=== PATIENT | female | born 1980 | race Caucasian/White ===

== ENCOUNTER 2019-03-24 05:43 | Inpatient (IN) ==
[2019-03-23 10:11] LABS: Apearance,Urine CLEAR (Clear); Bacteria,Urine Occasional /HPF (Few); Bilirubin,Urine Negative (Negative); Blood, Urine Negative (Negative); Glucose,Urine (UA) Negative (Negative); Ketones,Urine Negative (Negative); Mucus,Urine Occasional /LPF (Occasional); Nitrite,Urine Negative (Negative); Protein,Urine Negative; RBC,Urine <1 /HPF (0-4); Squamous Epithelial Cell,Urine Occasional /HPF (0-10); Urine Color Yellow (Yellow); Urine Specific Gravity 1.013 (1.001-1.035); Urine Urobilinogen < 2.0 EU/DL (0.2-1.0); WBC,Urine <1 /HPF (0-6)
[2019-03-23 10:24] LABS: Basophils % 0.3 % (0.0-0.8); Eosinophils # 0.3 10*3/uL (0.0-0.87); Eosinophils % 3.1 % (0.00-10.9); Hematocrit 40.1 VOL% (35.7-47.0); Immature Granulocytes % 0.4 %; Immature Granulocytes Absolute 0.04 #; Lymphocytes # 2.9 10*3/uL (1.4-4.0); Lymphocytes % 31.3 % (21.3-54.2); Mean Corpuscular HGB Conc 32.4 GM/DL (32-36); Mean Corpuscular Volume 90.3 FL (87-102); Mean Platelet Volume 10.5 FL (9.6-12.0); Monocytes % 6.3 % (1.7-12.7); Neutrophils % 58.6 % (38.7-73.9); Platelet Count 401 T/CUMM (130-400); Red Blood Count 4.44 MC/CUMM (3.8-5.5); Red Cell Distribution Width 13.1 % (9.3-17.3); White Blood Count 9.1 T/CUMM (4-12)
[2019-03-23 10:31] LABS: Albumin 3.9 G/DL (3.4-5.0); Bilirubin,Total 0.4 MG/DL (0.2-1.0); Calcium 9.4 MG/DL (8.5-10.1); Osmolality,Calculated 271.8 MOS/KG (273-304); Risk Ratio 2.63; Total Protein 7.9 G/DL (6.4-8.3)
[2019-03-23 11:18] LABS: HIV Antigen/Antibody Result Nonreactive (Nonreactive)
[2019-03-24] MEDS ORDERED: AMPICILLIN/SULBACTAM 3,000 MG in SODIUM CHLORIDE 0.9% 100 ML IV ONE (06:00)
[2019-03-24] MEDS ORDERED: LACTATED RINGERS 1,000 ML IV SCH ×2 (07:00→11:30)
[2019-03-24] MEDS ORDERED: fentaNYL 100 MCG/2 ML VIAL ONE ×2 (08:33→11:19)
[2019-03-24] MEDS ORDERED: MIDAZOLAM 2 MG/2 ML VIAL ONE (08:33)
[2019-03-24] MEDS ORDERED: EPINEPHrine 1 MG/ML VIAL ONE (08:34)
[2019-03-24] MEDS ORDERED: BUPIVACAINE 0.5% 50 ML VIAL ONE (08:34)
[2019-03-24] MEDS ORDERED: DEXAMETHASONE 4 MG/1 ML VIAL ONE ×2 (08:34→11:19)
[2019-03-24] MEDS ORDERED: SEVOFLURANE 1 UNIT/15 MINUTE INH ONE (11:19)
[2019-03-24] MEDS ORDERED: LIDOCAINE 2% 5 ML VIAL ONE (11:19)
[2019-03-24] MEDS ORDERED: PROPOFOL 200 MG/20 ML VIAL IV ONE (11:19)
[2019-03-24] MEDS ORDERED: ONDANSETRON 4 MG/2 ML VIAL ONE (11:19)
[2019-03-24] MEDS ORDERED: ROCURONIUM 100 MG/10 ML VIAL IV ONE (11:20)
[2019-03-24] MEDS ORDERED: BENZOCAINE/MENTHOL LOZENGE 18/BOX PO PRN (11:20)
[2019-03-24] MEDS ORDERED: DOCUSATE SODIUM 100 MG CAPSULE PO PRN (11:20)
[2019-03-24] MEDS ORDERED: MAGNESIUM HYDROXIDE SUSP 30 ML UDCUP PO PRN (11:20)
[2019-03-24] MEDS ORDERED: ACETAMINOPHEN 325 MG TABLET PO PRN (11:20)
[2019-03-24] MEDS ORDERED: ONDANSETRON 4 MG/2 ML VIAL IV PRN ×2 (11:20)
[2019-03-24] MEDS ORDERED: NEOSTIGMINE 10 MG/10 ML VIAL ONE (11:20)
[2019-03-24] MEDS ORDERED: SUCCINYLCHOLINE 200 MG/10 ML VIAL ONE (11:20)
[2019-03-24] MEDS ORDERED: ACETAMINOPHEN 1,000 MG/100 ML VIAL IV ONE (11:20)
[2019-03-24] MEDS ORDERED: LACTATED RINGERS 1,000 ML IV ONE (11:20)
[2019-03-24] MEDS ORDERED: BISACODYL 10 MG SUPP RECTAL PRN (11:20)
[2019-03-24] MEDS ORDERED: GLYCOPYRROLATE 0.4 MG/2 ML VIAL ONE (11:20)
[2019-03-24] MEDS ORDERED: HYDROmorphone 2 MG/1 ML VIAL ONE (11:21)
[2019-03-24] MEDS: HYDROmorphone 2 MG/1 ML VIAL IV PRN ×4 (11:24→11:41)
[2019-03-24 13:48] LABS: Apearance,Urine CLEAR (Clear); Bilirubin,Urine Negative (Negative); Blood, Urine Negative (Negative); Glucose,Urine (UA) Negative (Negative); Ketones,Urine 5 mg/dL (Negative); Mucus,Urine Occasional /LPF (Occasional); Nitrite,Urine Negative (Negative); Protein,Urine Negative; RBC,Urine 1 /HPF (0-4); Squamous Epithelial Cell,Urine Occasional /HPF (0-10); Urine Color Straw (Yellow); Urine Specific Gravity 1.006 (1.001-1.035); Urine Urobilinogen < 2.0 EU/DL (0.2-1.0); WBC,Urine <1 /HPF (0-6)
[2019-03-24] MEDS ORDERED: GLUCAGON 1 MG VIAL IM PRN (17:23)
[2019-03-24] MEDS ORDERED: DEXTROSE 50% 25 GM/50 ML VIAL IV PRN (17:23)
[2019-03-24] MEDS: ceFAZolin 1,000 MG in SYRINGE 1 EACH IV SCH (17:30)
[2019-03-24] MEDS: INSULIN REGULAR 100 UNIT/ML SUBCUT SCH (19:16)
[2019-03-25] MEDS: INSULIN REGULAR 100 UNIT/ML SUBCUT SCH ×5 (00:06→21:14)
[2019-03-25] MEDS: ceFAZolin 1,000 MG in SYRINGE 1 EACH IV SCH (01:09)
[2019-03-25 05:37] LABS: Basophils % 0.2 % (0.0-0.8); Eosinophils % 0.1 % (0.00-10.9); Immature Granulocytes % 0.4 %; Immature Granulocytes Absolute 0.05 #; Lymphocytes # 2.9 10*3/uL (1.4-4.0); Lymphocytes % 24.6 % (21.3-54.2); Mean Corpuscular HGB Conc 32.4 GM/DL (32-36); Mean Corpuscular Volume 90.9 FL (87-102); Mean Platelet Volume 10.3 FL (9.6-12.0); Monocytes % 8.2 % (1.7-12.7); Neutrophils % 66.5 % (38.7-73.9); Platelet Count 379 T/CUMM (130-400); Red Blood Count 4.07 MC/CUMM (3.8-5.5); Red Cell Distribution Width 13.1 % (9.3-17.3); White Blood Count 11.8 T/CUMM (4-12)
[2019-03-25] MEDS: IBUPROFEN 800 MG TABLET PO PRN ×2 (09:33→18:09)
[2019-03-26] MEDS: INSULIN REGULAR 100 UNIT/ML SUBCUT SCH (07:50)
[2019-03-26 08:17] VITALS: BP 97/59
== END 2019-03-26 08:55 | disposition home or self-care (01) | DRG 743 ==
LOC: N.PREADM 05:43 → N.SDSINP 05:44 → N.OB 12:00
PROVIDERS: ADMIT Obstetrics & Gynecology; ATTEND Obstetrics & Gynecology

== ENCOUNTER 2022-03-19 13:26 | Inpatient (IN) ==
[2022-03-19] MEDS ORDERED: HYDROCORTISONE 100 MG VIAL IV STA ×2 (15:14→16:38)
[2022-03-19] MEDS ORDERED: SODIUM CHLORIDE 0.9% 1,000 ML IV STA ×2 (15:14→19:01)
[2022-03-19] MEDS ORDERED: MORPHINE 2 MG/1 ML SYRINGE IV STA (15:17)
[2022-03-19] MEDS ORDERED: ONDANSETRON 4 MG/2 ML VIAL IV STA (15:17)
[2022-03-19 15:26] LABS: Basophils % 0.1 % (0.0-0.8); Hematocrit 41.3 VOL% (35.7-47.0); Hemoglobin 14.5 GM/DL (12.0-16.0); Immature Granulocytes % 0.2 %; Immature Granulocytes Absolute 0.02 #; Lymphocytes # 2.4 10*3/uL (1.4-4.0); Lymphocytes % 27.4 % (21.3-54.2); Mean Corpuscular HGB Conc 35.1 GM/DL (32-36); Mean Corpuscular Volume 85.3 FL (87-102); Mean Platelet Volume 11.1 FL (9.6-12.0); Monocytes # 0.3 10*3/uL (0.11-0.8); Monocytes % 3.8 % (1.7-12.7); Neutrophils % 68.5 % (38.7-73.9); Platelet Count 406 T/CUMM (130-400); Red Blood Count 4.84 MC/CUMM (3.8-5.5); Red Cell Distribution Width 12.7 % (9.3-17.3); White Blood Count 8.7 T/CUMM (4-12)
[2022-03-19 15:45] LABS: Albumin 4.8 G/DL (3.4-5.0); Bilirubin,Total 0.9 MG/DL (0.20-1.00); Calcium 10.8 MG/DL (8.5-10.1); Osmolality,Calculated 263.8 MOS/KG (273-304); Thyroid Stimulating Hormone 5.45 uIU/ml (0.358-3.74)
[2022-03-19 15:50] LABS: Potassium 6.9 MMOL/L (3.5-5.1)
[2022-03-19] MEDS ORDERED: ALBUTEROL 2.5 MG/3 ML NEB RESP TX STA (16:15)
[2022-03-19] MEDS ORDERED: INSULIN REGULAR 100 UNIT/ML IV STA (16:15)
[2022-03-19 16:43] LABS: Arterial Base Excess iSTAT -9 MMOL/L (-2.5-2.5); Arterial Bicarbonate iSTAT 16.6 MMOL/L (20-26); Arterial O2 Saturation iSTAT 100 % (95-100); Arterial PCO2 iSTAT 33 MM HG (35-48); Arterial PO2 iSTAT 251 MM HG (80-95); Arterial Total CO2 iSTAT 18 MMO/L (23-27)
[2022-03-19] MEDS: INSULIN LISPRO 100 UNIT/ML SUBCUT SCH ×2 (21:15→23:52)
[2022-03-19] MEDS: SODIUM CHLORIDE 0.9% 1,000 ML IV SCH (21:35)
[2022-03-19 23:40] LABS: Osmolality,Calculated 277.9 MOS/KG (273-304); Potassium 4.9 MMOL/L (3.5-5.1)
[2022-03-19] MEDS: MORPHINE 2 MG/1 ML SYRINGE IV PRN (23:52)
[2022-03-20] MEDS ORDERED: HYDROCORTISONE 100 MG VIAL IV SCH (02:00)
[2022-03-20] MEDS ORDERED: ONDANSETRON 4 MG/2 ML VIAL IV PRN (03:10)
[2022-03-20] MEDS ORDERED: GLUCAGON 1 MG VIAL IM PRN (03:10)
[2022-03-20] MEDS ORDERED: ACETAMINOPHEN 325 MG TABLET PO PRN (03:10)
[2022-03-20] MEDS ORDERED: DEXTROSE 10% 250 ML BAG IV PRN (03:13)
[2022-03-20] MEDS: INSULIN LISPRO 100 UNIT/ML SUBCUT SCH ×6 (04:08→21:29)
[2022-03-20] MEDS: DOCUSATE SODIUM 100 MG CAPSULE PO SCH ×3 (04:08→21:29)
[2022-03-20] MEDS: HYDROCORTISONE 100 MG VIAL IV SCH ×3 (04:08→21:30)
[2022-03-20] MEDS: INSULIN REGULAR 100 UNIT/ML SUBCUT SCH ×3 (04:08→12:00)
[2022-03-20 05:26] LABS: Calcium 9.2 MG/DL (8.5-10.1); Osmolality,Calculated 264.4 MOS/KG (273-304); Potassium 4.5 MMOL/L (3.5-5.1)
[2022-03-20 05:42] LABS: Hematocrit 33.9 VOL% (35.7-47.0); Hemoglobin 11.6 GM/DL (12.0-16.0); Immature Granulocytes % 0.4 %; Immature Granulocytes Absolute 0.03 #; Lymphocytes # 1.4 10*3/uL (1.4-4.0); Lymphocytes % 18.6 % (21.3-54.2); Mean Corpuscular HGB Conc 34.2 GM/DL (32-36); Mean Corpuscular Volume 87.4 FL (87-102); Mean Platelet Volume 10.5 FL (9.6-12.0); Monocytes # 0.4 10*3/uL (0.11-0.8); Monocytes % 4.8 % (1.7-12.7); Neutrophils % 76.2 % (38.7-73.9); Platelet Count 282 T/CUMM (130-400); Red Blood Count 3.88 MC/CUMM (3.8-5.5); Red Cell Distribution Width 12.7 % (9.3-17.3); White Blood Count 7.4 T/CUMM (4-12)
[2022-03-20] MEDS: MORPHINE 2 MG/1 ML SYRINGE IV PRN ×4 (06:27→18:30)
[2022-03-20] MEDS: SODIUM CHLORIDE 0.9% 1,000 ML IV SCH ×5 (07:10→23:33)
[2022-03-20] MEDS: PANTOPRAZOLE 40 MG TABLET PO SCH (09:44)
[2022-03-20] MEDS: GABAPENTIN 100 MG CAPSULE PO SCH (21:28)
[2022-03-20] MEDS: ESCITALOPRAM 10 MG TABLET PO SCH (21:29)
[2022-03-20] MEDS: buPROPion SR 100 MG TABLET PO SCH (21:29)
[2022-03-21 05:01] LABS: Hemoglobin 9.7 GM/DL (12.0-16.0); Immature Granulocytes % 0.8 %; Immature Granulocytes Absolute 0.06 #; Lymphocytes # 1.1 10*3/uL (1.4-4.0); Lymphocytes % 15.7 % (21.3-54.2); Mean Corpuscular HGB Conc 33.4 GM/DL (32-36); Mean Corpuscular Volume 89.5 FL (87-102); Mean Platelet Volume 10.9 FL (9.6-12.0); Monocytes # 0.2 10*3/uL (0.11-0.8); Monocytes % 3.1 % (1.7-12.7); Neutrophils % 80.4 % (38.7-73.9); Platelet Count 235 T/CUMM (130-400); Red Blood Count 3.24 MC/CUMM (3.8-5.5); Red Cell Distribution Width 13.4 % (9.3-17.3); White Blood Count 7.2 T/CUMM (4-12)
[2022-03-21 05:26] LABS: Calcium 8.8 MG/DL (8.5-10.1); Osmolality,Calculated 285.4 MOS/KG (273-304); Potassium 4.3 MMOL/L (3.5-5.1)
[2022-03-21] MEDS: HYDROCORTISONE 100 MG VIAL IV SCH ×3 (05:32→22:01)
[2022-03-21] MEDS: LEVOTHYROXINE 75 MCG TABLET PO SCH (05:33)
[2022-03-21] MEDS: SODIUM CHLORIDE 0.9% 1,000 ML IV SCH (06:27)
[2022-03-21] MEDS: INSULIN LISPRO 100 UNIT/ML SUBCUT SCH ×4 (08:56→22:01)
[2022-03-21] MEDS: DOCUSATE SODIUM 100 MG CAPSULE PO SCH ×2 (08:57→22:02)
[2022-03-21] MEDS: PANTOPRAZOLE 40 MG TABLET PO SCH (08:57)
[2022-03-21] MEDS: MORPHINE 2 MG/1 ML SYRINGE IV PRN ×3 (08:57→22:03)
[2022-03-21] MEDS ORDERED: INSULIN GLARGINE 100 UNIT/ML SUBCUT SCH (21:00)
[2022-03-21] MEDS: ESCITALOPRAM 10 MG TABLET PO SCH (22:02)
[2022-03-21] MEDS: INSULIN GLARGINE 100 UNIT/ML SUBCUT SCH (22:02)
[2022-03-21] MEDS: buPROPion SR 100 MG TABLET PO SCH (22:02)
[2022-03-21] MEDS: GABAPENTIN 100 MG CAPSULE PO SCH (22:02)
[2022-03-22] MEDS: SODIUM CHLORIDE 0.9% 1,000 ML IV SCH ×4 (01:09→14:40)
[2022-03-22] MEDS: LEVOTHYROXINE 75 MCG TABLET PO SCH (05:59)
[2022-03-22] MEDS: HYDROCORTISONE 100 MG VIAL IV SCH ×3 (06:00→21:06)
[2022-03-22 06:53] LABS: Hematocrit 30.1 VOL% (35.7-47.0); Hemoglobin 10.1 GM/DL (12.0-16.0); Immature Granulocytes % 1.3 %; Immature Granulocytes Absolute 0.07 #; Lymphocytes # 1.6 10*3/uL (1.4-4.0); Lymphocytes % 29.8 % (21.3-54.2); Mean Corpuscular HGB Conc 33.6 GM/DL (32-36); Mean Corpuscular Volume 91.2 FL (87-102); Mean Platelet Volume 11.6 FL (9.6-12.0); Monocytes # 0.2 10*3/uL (0.11-0.8); Monocytes % 3.4 % (1.7-12.7); Neutrophils % 65.5 % (38.7-73.9); Platelet Count 225 T/CUMM (130-400); Red Cell Distribution Width 13.5 % (9.3-17.3); White Blood Count 5.3 T/CUMM (4-12)
[2022-03-22 07:11] LABS: Calcium 8.5 MG/DL (8.5-10.1); Osmolality,Calculated 289.1 MOS/KG (273-304); Potassium 3.8 MMOL/L (3.5-5.1)
[2022-03-22] MEDS: PANTOPRAZOLE 40 MG TABLET PO SCH (09:38)
[2022-03-22] MEDS: INSULIN LISPRO 100 UNIT/ML SUBCUT SCH ×4 (09:38→21:06)
[2022-03-22] MEDS: DOCUSATE SODIUM 100 MG CAPSULE PO SCH ×2 (09:38→21:05)
[2022-03-22] MEDS: MORPHINE 2 MG/1 ML SYRINGE IV PRN ×3 (10:50→21:44)
[2022-03-22] MEDS: ESCITALOPRAM 10 MG TABLET PO SCH (21:05)
[2022-03-22] MEDS: GABAPENTIN 100 MG CAPSULE PO SCH (21:05)
[2022-03-22] MEDS: buPROPion SR 100 MG TABLET PO SCH (21:05)
[2022-03-22] MEDS: INSULIN GLARGINE 100 UNIT/ML SUBCUT SCH (21:06)
[2022-03-23] MEDS: SODIUM CHLORIDE 0.9% 1,000 ML IV SCH ×2 (00:55→09:08)
[2022-03-23 05:07] LABS: Basophils % 0.2 % (0.0-0.8); Hematocrit 28.4 VOL% (35.7-47.0); Hemoglobin 9.4 GM/DL (12.0-16.0); Immature Granulocytes % 1.1 %; Immature Granulocytes Absolute 0.07 #; Lymphocytes # 1.6 10*3/uL (1.4-4.0); Lymphocytes % 24.9 % (21.3-54.2); Mean Corpuscular HGB Conc 33.1 GM/DL (32-36); Mean Corpuscular Volume 91.3 FL (87-102); Mean Platelet Volume 12.1 FL (9.6-12.0); Monocytes # 0.3 10*3/uL (0.11-0.8); Neutrophils % 69.8 % (38.7-73.9); Platelet Count 240 T/CUMM (130-400); Red Blood Count 3.11 MC/CUMM (3.8-5.5); Red Cell Distribution Width 13.2 % (9.3-17.3); White Blood Count 6.3 T/CUMM (4-12)
[2022-03-23] MEDS: HYDROCORTISONE 100 MG VIAL IV SCH (05:25)
[2022-03-23 05:31] LABS: Alanine Aminotransferase 19 U/L (13-56); Albumin 2.6 G/DL (3.4-5.0); Alkaline Phosphatase 58 U/L (45-117); Aspartate Amino Transferase 15 U/L (0-37); Bilirubin,Total < 0.39 MG/DL (0.20-1.00); Blood Urea Nitrogen 10 MG/DL (7-18); Calcium 8.2 MG/DL (8.5-10.1); Carbon Dioxide 24 MMOL/L (21-32); Chloride 111 MMOL/L (98-107); Glucose 315 MG/DL (74-106); Osmolality,Calculated 293.1 MOS/KG (273-304); Potassium 3.9 MMOL/L (3.5-5.1); Sodium 142 MMOL/L (136-145); Total Protein 5.1 G/DL (6.4-8.2)
[2022-03-23] MEDS: LEVOTHYROXINE 75 MCG TABLET PO SCH (05:37)
[2022-03-23] MEDS: INSULIN LISPRO 100 UNIT/ML SUBCUT SCH ×4 (08:45→21:49)
[2022-03-23] MEDS: MORPHINE 2 MG/1 ML SYRINGE IV PRN ×4 (08:46→22:06)
[2022-03-23] MEDS: DOCUSATE SODIUM 100 MG CAPSULE PO SCH ×2 (09:07→21:44)
[2022-03-23] MEDS: PANTOPRAZOLE 40 MG TABLET PO SCH (09:08)
[2022-03-23] MEDS: FLUDROCORTISONE 0.1 MG TABLET PO SCH (12:26)
[2022-03-23] MEDS ORDERED: ENOXAPARIN 40 MG/0.4 ML SYRINGE SUBCUT SCH (21:00)
[2022-03-23] MEDS ORDERED: INSULIN GLARGINE 100 UNIT/ML SUBCUT SCH (21:00)
[2022-03-23] MEDS: HYDROCORTISONE 10 MG TABLET PO SCH (21:44)
[2022-03-23] MEDS: buPROPion SR 100 MG TABLET PO SCH (21:45)
[2022-03-23] MEDS: GABAPENTIN 100 MG CAPSULE PO SCH (21:45)
[2022-03-23] MEDS: ESCITALOPRAM 10 MG TABLET PO SCH (21:45)
[2022-03-24] MEDS: LEVOTHYROXINE 75 MCG TABLET PO SCH (06:07)
[2022-03-24 08:44] VITALS: BP 109/69
[2022-03-24] MEDS: PANTOPRAZOLE 40 MG TABLET PO SCH (08:54)
[2022-03-24] MEDS: DOCUSATE SODIUM 100 MG CAPSULE PO SCH (08:54)
[2022-03-24] MEDS: HYDROCORTISONE 10 MG TABLET PO SCH (08:54)
[2022-03-24] MEDS: FLUDROCORTISONE 0.1 MG TABLET PO SCH (08:54)
[2022-03-24] MEDS: INSULIN LISPRO 100 UNIT/ML SUBCUT SCH (08:56)
[2022-03-24 09:12] LABS: Hematocrit 29.4 VOL% (35.7-47.0); Hemoglobin 9.9 GM/DL (12.0-16.0); Immature Granulocytes % 0.9 %; Immature Granulocytes Absolute 0.06 #; Lymphocytes % 44.9 % (21.3-54.2); Mean Corpuscular HGB Conc 33.7 GM/DL (32-36); Mean Corpuscular Volume 91.6 FL (87-102); Mean Platelet Volume 11.7 FL (9.6-12.0); Monocytes # 0.3 10*3/uL (0.11-0.8); Neutrophils % 49.2 % (38.7-73.9); Platelet Count 277 T/CUMM (130-400); Red Blood Count 3.21 MC/CUMM (3.8-5.5); Red Cell Distribution Width 13.1 % (9.3-17.3); White Blood Count 6.6 T/CUMM (4-12)
[2022-03-24] MEDS ORDERED: INSULIN GLARGINE 100 UNIT/ML SUBCUT ONE (09:30)
[2022-03-24] MEDS: MORPHINE 2 MG/1 ML SYRINGE IV PRN (09:33)
[2022-03-24 09:34] LABS: Calcium 8.1 MG/DL (8.5-10.1); Osmolality,Calculated 290.3 MOS/KG (273-304); Potassium 3.5 MMOL/L (3.5-5.1)
== END 2022-03-24 11:05 | disposition home or self-care (01) | DRG 644 ==
LOC: N.EDINP 13:26 → N.ED 13:26 → N.5E 22:01
PROVIDERS: ADMIT Internal Medicine; ATTEND Internal Medicine

== ENCOUNTER 2022-06-29 01:34 | Observation (INO) ==
[2022-06-29] MEDS ORDERED: METOCLOPRAMIDE 10 MG/2 ML VIAL IV STA (01:58)
[2022-06-29] MEDS ORDERED: HYDROCORTISONE 100 MG VIAL IV STA (01:58)
[2022-06-29] MEDS ORDERED: SODIUM CHLORIDE 0.9% 1,000 ML IV STA (01:58)
[2022-06-29] MEDS ORDERED: ONDANSETRON 4 MG/2 ML VIAL IV STA (01:58)
[2022-06-29] MEDS ORDERED: HYDROmorphone 1 MG/1 ML SYRINGE IV STA (01:58)
[2022-06-29 02:21] LABS: Basophils % 0.1 % (0.0-0.8); Hematocrit 38.3 VOL% (35.7-47.0); Hemoglobin 11.7 GM/DL (12.0-16.0); Immature Granulocytes % 0.5 %; Immature Granulocytes Absolute 0.05 #; Lymphocytes # 1.9 10*3/uL (1.4-4.0); Lymphocytes % 16.8 % (21.3-54.2); Mean Corpuscular HGB Conc 30.5 GM/DL (32-36); Mean Corpuscular Volume 87.2 FL (87-102); Mean Platelet Volume 9.3 FL (9.6-12.0); Monocytes # 0.6 10*3/uL (0.11-0.8); Monocytes % 5.1 % (1.7-12.7); Neutrophils % 77.5 % (38.7-73.9); Platelet Count 426 T/CUMM (130-400); Red Blood Count 4.39 MC/CUMM (3.8-5.5); Red Cell Distribution Width 14.6 % (9.3-17.3)
[2022-06-29 02:47] LABS: Alanine Aminotransferase 19 U/L (13-56); Albumin 3.7 G/DL (3.4-5.0); Alkaline Phosphatase 79 U/L (45-117); Amylase 22 U/L (25-115); Aspartate Amino Transferase 21 U/L (0-37); Blood Urea Nitrogen 14 MG/DL (7-18); Calcium 8.9 MG/DL (8.5-10.1); Carbon Dioxide 28 MMOL/L (21-32); Chloride 104 MMOL/L (98-107); Glucose 94 MG/DL (74-106); Osmolality,Calculated 279.4 MOS/KG (273-304); Potassium 3.5 MMOL/L (3.5-5.1); Sodium 140 MMOL/L (136-145); Total Protein 7.3 G/DL (6.4-8.2)
[2022-06-29] MEDS ORDERED: MAGNESIUM SULF RIDER 2 GM/50 ML PREMIX IV STA (02:50)
[2022-06-29 03:20] LABS: Free T4 (Free Thyroxine) 0.94 NG/DL (0.76-1.46); Thyroid Stimulating Hormone 2.46 uIU/ml (0.358-3.74)
[2022-06-29] MEDS ORDERED: SODIUM CHLORIDE 0.9% 1,400 ML IV STA (03:20)
[2022-06-29 04:05] LABS: Bilirubin,Urine Negative (Negative); Blood, Urine Negative (Negative); Glucose,Urine (UA) Negative (Negative); Ketones,Urine Negative (Negative); Mucus,Urine Occasional /LPF (Occasional); Nitrite,Urine Negative (Negative); Protein,Urine Negative (Negative); RBC,Urine 1 /HPF (0-4); Squamous Epithelial Cell,Urine Occasional /HPF (0-10); Urine Appearance Clear (Clear); Urine Color Yellow (Yellow); Urine pH 5.5 (4.5-8.0)
[2022-06-29 04:06] LABS: Urine Urobilinogen 0.2 eU/dL (<2.0)
[2022-06-29] MEDS ORDERED: ONDANSETRON 4 MG TABLET PO PRN (04:33)
[2022-06-29] MEDS ORDERED: HYDROmorphone 1 MG/1 ML SYRINGE IV PRN (04:33)
[2022-06-29] MEDS ORDERED: ACETAMINOPHEN 325 MG TABLET PO PRN (04:33)
[2022-06-29] MEDS ORDERED: GLUCAGON 1 MG VIAL IM PRN (04:33)
[2022-06-29] MEDS ORDERED: ONDANSETRON 4 MG/2 ML VIAL IV PRN (04:33)
[2022-06-29] MEDS ORDERED: GABAPENTIN 100 MG CAPSULE PO PRN (04:33)
[2022-06-29] MEDS ORDERED: DEXTROSE 10% 250 ML BAG IV PRN (04:41)
[2022-06-29] MEDS: PIPERACILLIN/TAZOBACTAM 3,375 MG in SODIUM CHLORIDE 0.9% 100 ML IV SCH ×3 (04:55→21:20)
[2022-06-29 05:59] LABS: Hematocrit 31.2 VOL% (35.7-47.0); Immature Granulocytes % 0.7 %; Immature Granulocytes Absolute 0.06 #; Lymphocytes # 0.8 10*3/uL (1.4-4.0); Lymphocytes % 9.2 % (21.3-54.2); Mean Corpuscular HGB Conc 30.8 GM/DL (32-36); Mean Corpuscular Volume 86.2 FL (87-102); Mean Platelet Volume 9.5 FL (9.6-12.0); Monocytes # 0.5 10*3/uL (0.11-0.8); Monocytes % 5.9 % (1.7-12.7); Neutrophils % 84.2 % (38.7-73.9); Platelet Count 368 T/CUMM (130-400); Red Blood Count 3.62 MC/CUMM (3.8-5.5); Red Cell Distribution Width 14.9 % (9.3-17.3); White Blood Count 8.6 T/CUMM (4-12)
[2022-06-29] MEDS ORDERED: INSULIN REGULAR 100 UNIT/ML SUBCUT SCH (06:00)
[2022-06-29 06:01] LABS: Hemoglobin 9.6 GM/DL (12.0-16.0)
[2022-06-29 06:16] LABS: Albumin 3.1 G/DL (3.4-5.0); Bilirubin,Total 0.5 MG/DL (0.20-1.00); Calcium 7.9 MG/DL (8.5-10.1); Osmolality,Calculated 281.4 MOS/KG (273-304); Potassium 4.1 MMOL/L (3.5-5.1)
[2022-06-29] MEDS: LEVOTHYROXINE 75 MCG TABLET PO SCH (06:46)
[2022-06-29] MEDS: HYDROCORTISONE 100 MG VIAL IV SCH ×2 (09:20→17:52)
[2022-06-29] MEDS: FLUDROCORTISONE 0.1 MG TABLET PO SCH (09:21)
[2022-06-29] MEDS: ENOXAPARIN 40 MG/0.4 ML SYRINGE SUBCUT SCH (09:21)
[2022-06-29] MEDS: PANTOPRAZOLE 40 MG VIAL IV SCH (09:21)
[2022-06-29] MEDS: DOCUSATE SODIUM 100 MG CAPSULE PO SCH ×2 (09:21→21:18)
[2022-06-29] MEDS: SODIUM CHLORIDE 0.9% 1,000 ML IV SCH ×4 (11:30→22:50)
[2022-06-29] MEDS: INSULIN LISPRO 100 UNIT/ML SUBCUT SCH ×3 (12:30→21:19)
[2022-06-29] MEDS: HYDROmorphone 1 MG/1 ML SYRINGE IV PRN (17:53)
[2022-06-29] MEDS ORDERED: INSULIN GLARGINE 100 UNIT/ML SUBCUT SCH (21:00)
[2022-06-29] MEDS ORDERED: buPROPion SR 100 MG TABLET PO SCH (21:00)
[2022-06-29] MEDS ORDERED: ESCITALOPRAM 10 MG TABLET PO SCH (21:00)
[2022-06-29] MEDS: HYDROCORTISONE 10 MG TABLET PO SCH (21:18)
[2022-06-30] MEDS: HYDROCORTISONE 100 MG VIAL IV SCH ×2 (01:24→08:31)
[2022-06-30] MEDS: LEVOTHYROXINE 75 MCG TABLET PO SCH (05:33)
[2022-06-30 05:36] LABS: Hemoglobin 9.7 GM/DL (12.0-16.0); Immature Granulocytes Absolute 0.08 #; Lymphocytes # 1.1 10*3/uL (1.4-4.0); Lymphocytes % 14.3 % (21.3-54.2); Mean Corpuscular HGB Conc 30.3 GM/DL (32-36); Mean Corpuscular Volume 88.6 FL (87-102); Mean Platelet Volume 9.7 FL (9.6-12.0); Monocytes # 0.3 10*3/uL (0.11-0.8); Monocytes % 3.4 % (1.7-12.7); Neutrophils % 81.3 % (38.7-73.9); Platelet Count 353 T/CUMM (130-400); Red Blood Count 3.61 MC/CUMM (3.8-5.5); White Blood Count 7.7 T/CUMM (4-12)
[2022-06-30] MEDS: SODIUM CHLORIDE 0.9% 1,000 ML IV SCH ×2 (05:36→14:08)
[2022-06-30] MEDS: PIPERACILLIN/TAZOBACTAM 3,375 MG in SODIUM CHLORIDE 0.9% 100 ML IV SCH ×2 (05:39→14:08)
[2022-06-30 06:02] LABS: Albumin 2.6 G/DL (3.4-5.0); Bilirubin,Total 0.5 MG/DL (0.20-1.00); Calcium 8.3 MG/DL (8.5-10.1); Osmolality,Calculated 288.4 MOS/KG (273-304); Potassium 4.3 MMOL/L (3.5-5.1)
[2022-06-30] MEDS: ENOXAPARIN 40 MG/0.4 ML SYRINGE SUBCUT SCH (08:30)
[2022-06-30] MEDS: FLUDROCORTISONE 0.1 MG TABLET PO SCH (08:30)
[2022-06-30] MEDS: DOCUSATE SODIUM 100 MG CAPSULE PO SCH (08:30)
[2022-06-30] MEDS: HYDROCORTISONE 10 MG TABLET PO SCH (08:30)
[2022-06-30] MEDS: INSULIN LISPRO 100 UNIT/ML SUBCUT SCH ×2 (08:31→12:49)
[2022-06-30] MEDS: PANTOPRAZOLE 40 MG VIAL IV SCH (08:31)
[2022-06-30] MEDS: HYDROmorphone 1 MG/1 ML SYRINGE IV PRN (09:47)
[2022-06-30 11:24] VITALS: BP 105/75
== END 2022-06-30 13:26 | disposition home or self-care (01) ==
LOC: N.2E 01:34 → N.ED 01:34 → N.2E 04:10
PROVIDERS: ADMIT Internal Medicine; ATTEND Internal Medicine